=== PATIENT | male | born 1965 | race Caucasian/White ===

== ENCOUNTER → 2019-07-07 09:35 | Outpatient (CLI) | payer OTHER, SELFPAY ==
--- NOTE | 2019-07-07 09:45 | MRI_ITS ---
STUDY: MRI LEFT FOREFOOT WITHOUT CONTRAST REASON FOR EXAM: Male, 53 years old. Pain in the plantar aspect of the second metatarsal bone. TECHNIQUE: Standardized fat and water weighted pulse sequences were obtained in all 3 orthogonal planes. COMPARISON: None. FINDINGS: Small joint effusion of the first metatarsophalangeal joint. Normal tibial and fibular sesamoids, with normal sesamoids-first metatarsal articulations. Small joint effusion of the first interphalangeal joint. Normal proximal and distal phalanges of the great toe. Normal medial and lateral heads of the flexor hallucis brevis tendons. Normal flexor and extensor hallucis longus tendons. Normal second through fifth metatarsophalangeal (MTP) joints. Normal interphalangeal joints of the second through fifth toes. Normal proximal, middle and distal phalanges of the second through fifth toes. Normal first through fourth intermetatarsal spaces. Normal flexor and extensor tendons of the second through fifth toes. Normal visualized metatarsi. Normal intrinsic muscles of the forefoot. There is no demonstrated soft tissue abnormality. MRI/Lower Ext/No Jt/w/o IMPRESSION: Small effusions of the first metatarsophalangeal joint first interphalangeal joint. No second plantar plate tear. Electronically Signed: Felipe Olivas MD at 13:58 EDT Tel , Service support ,
== END ==
PROVIDERS: Family Provider Family Medicine; PCP Family Medicine; Referring Provider Podiatrist; Visit Provider Podiatrist
DX: S99.922A Unspecified injury of left foot, initial encounter (principal); M77.8 Other enthesopathies, not elsewhere classified
CPT/HCPCS: 73718

== ENCOUNTER 2020-09-24 10:37 | Emergency (ER) | payer OTHER, SELFPAY ==
[2020-09-24 10:43] VITALS: BP 174/105; PULSE 76; RESP 16; TEMP 36.6; O2SAT 96; BMI 26.9
--- NOTE | 2020-09-24 11:35 | EKG12_ITS ---
Test Reason : CP Blood Pressure : / mmHG Vent. Rate : 074 BPM Atrial Rate : 074 BPM P-R Int : 174 ms QRS Dur : 094 ms QT Int : 378 ms P-R-T Axes : 050 027 022 degrees QTc Int : 419 ms Normal sinus rhythm Normal ECG Confirmed by ANDREA AGUSTIN, SHARATH ([id number]), news video editor SUKI WALTERS ([id number]) on 09/29/2020 9:52:31 A M Referred By: PETE Confirmed By:SYBIL MENDEZ MD
--- NOTE | 2020-09-24 11:36 | ED.VISSUMM ---
- ER Visit Summary Date of Service: 09/24/20 Chief Complaint: Back and left arm pain History of Present Illness: The patient is a 55 M who presents with back and left arm pain that is been getting worse over the past 4 days. Patient describes the pain is dull. Patient states the pain is over the left upper thoracic area. Patient states the pain is constant. Patient states the pain is worse with palpation and movement. Patient does admit to some tingling down his left arm into his fifth finger. Patient denies any shortness of breath. Patient denies any nausea or vomiting. Patient denies any fevers or chills. Patient does admit to some mild pain in his neck on the left. Physical Examination: Vital signs are stable. Patient is afebrile. Patient is in no acute distress. Heart was regular rate and rhythm. Lungs are clear and equal bilaterally. Abdomen is soft. Bowel sounds are normal. There is no tenderness. Cranial nerves II through XII are intact. Strength is 5/5 bilateral in the upper and lower extremities. Musculoskeletal exam reveals mild tenderness at over the left trapezius area. There is no edema or ecchymosis. There is no bony crepitance or step-off. Test Results: EKG was obtained. On my interpretation, there is a normal sinus rhythm with a rate of 74. There are no acute ST or T wave changes. Portable 1 view chest x-ray was obtained. On my interpretation, lung alberts are clear. There is normal cardiac silhouette. Bony thorax is normal. There is no acute process noted. Radiologist also interpreted the x-ray and agrees. X-rays of the cervical spine were obtained. There are 3 views. On my interpretation, there are degenerative changes noted. There is no spondylolisthesis or spondylolysis. There is no soft tissue swelling. There is no acute fracture. Radiologist also interpreted the x-rays and agrees. CBC and basic metabolic profile were within normal limits. Troponin was normal. Emergency Department Course and Treatment: Since the paresthesias are only over the fourth and fifth digits of the left hand, it is likely from a peripheral neuropathy of either the C7 nerve root or the ulnar nerve. Patient was given a prescription for prednisone. Patient was instructed to follow-up with his primary care physician in 5 to 7 days for reevaluation. Patient understood and was agreeable with the plan. All questions were answered. Disposition: Discharge home Impression: 1. Paresthesias This note was generated with [employer] dictation software. It may contain incorrect words, spelling, and punctuation that were not noted in review of the chart prior to signing ED Disposition - Plan for ED Patient: Disposition: Home or Assisted Living Diagnosis: Paresthesias in left hand Prescriptions: Prednisone [Deltasone] 60 mg PO DAILY #15 tab Transmission Status: Pending to [id number] Referrals: Chandler Aquino MD [Primary Care Provider] - 5-7 Days
--- NOTE | 2020-09-24 12:05 | RAD_ITS ---
STUDY: X-RAY CHEST REASON FOR EXAM: Male, 55 years old. Left arm pain and numbness x3 days -- also reports pain in left shoulder blade TECHNIQUE: Single AP portable view of the chest. COMPARISON: None. FINDINGS: EKG electrodes are seen. The lungs are clear and expanded. There is no demonstrated pleural abnormality. Normal size heart. Normal mediastinum and enmanuel. Normal visualized pulmonary arteries. There is atherosclerotic tortuosity of the aortic arch and descending thoracic aorta. There are degenerative changes of the visualized thoracic spine. Mild dextroscoliosis. Normal visualized ribs, clavicles, and shoulders. There is no demonstrated abnormality of the visualized soft tissue structures of the upper abdomen. RAD/Chest 1 View (Portable) IMPRESSION: No acute abnormality is seen. Electronically Signed: Pawan Mendiola, at 12:21 EST , Service support ,
--- NOTE | 2020-09-24 12:05 | RAD_ITS ---
STUDY: X-RAY - CERVICAL SPINE REASON FOR EXAM: Male, 55 years old. Left arm pain and numbness x3 days -- also reports pain in left shoulder blade TECHNIQUE: 3 view(s) of the cervical spine were obtained. COMPARISON: None FINDINGS: Normal anterior atlantoaxial articulation. Normal odontoid process. There is straightening of the normal cervical lordosis. There is multi-level endplate spondylosis. There is multi-level degenerative disc disease with multilevel disc space narrowing. Normal visualized intervertebral neuroforamina. The soft tissue structures are unremarkable. RAD/Cerv Spine 2 or 3 Views IMPRESSION: Straightening of the normal cervical lordosis. Disc space narrowing and the spondylosis at the C3-C4, C4-C5 and C5-C6 levels. Electronically Signed: Pawan Mendiola, at 12:20 EST , Service support ,
[2020-09-24 12:06] LABS: Absolute Lymphocyte Count 1.93 X10^3/uL (0.83-4.51); Basophil# 0.08 X10^3/uL; Basophil% 1.2 % (0-1); Eosinophil# 0.24 X10^3/uL; Eosinophils% 3.6 % (0-5); Hematocrit 37.9 % (40-54); Hemoglobin 12.9 g/dL (13.0-16.5); Lymphocyte # 1.93 X10^3/ul (4.0); Lymphocyte % 28.7 % (19-41); Mean Corpuscular Hgb 30.6 pg (27.0-32.0); Mean Corpuscular Volume 89.8 fL (80-94); Mean Platelet Vol. 9.3 fl (6.2-12.0); Monocyte# 0.44 X10^3/uL; Monocyte% 6.5 % (0-10); NRBC Flagged by Analyzer 0 % (0-5); Neutrophil # 3.98 X10^3/uL (2.7-7.7); Neutrophil % 59.1 % (47-70); Platelet Count 255 K/mm3 (150-450); RBC Distribution Width CV 12.1 % (11.6-14.6); RBC Distribution Width SD 39.3 fl (35.1-43.9); Red Blood Count 4.22 M/mm3 (4.6-6.2); White Blood Count 6.7 K/mm3 (4.4-11.0)
[2020-09-24 12:20] LABS: Anion Gap 3 (5-15); BUN 20 mg/dL (7-18); BUN/Creat Ratio 17.1 RATIO (10-20); Calcium,Total 8.8 mg/dL (8.5-10.1); Chloride 107 mmol/L (98-107); Creatinine, Serum 1.17 mg/dL (0.70-1.30); EST Glomerular Filtration Rate 68 mL/min (>60); Est Glom Filt Rate - Afr Amer 83 mL/min (>60); Estimated Creatinine Clearance 80.99 ml/min; Glucose 97 mg/dL (74-106); Potassium 4.1 mmol/L (3.5-5.1); Sodium Level 138 mmol/L (136-145)
[2020-09-24 13:56] VITALS: PULSE 66; RESP 16; O2SAT 97
[2020-09-24] MEDS: predniSONE 20 MG Tablet 60 MG PO (13:56)
== END 2020-09-24 14:00 | disposition home or self-care (01) ==
PROVIDERS: Emergency Provider Emergency Medicine; PCP Family Medicine
DX: R20.2 Paresthesia of skin (principal); M54.2 Cervicalgia; M54.9 Dorsalgia, unspecified; I10 Essential (primary) hypertension; K21.9 Gastro-esophageal reflux disease without esophagitis; E11.9 Type 2 diabetes mellitus without complications; N40.0 Benign prostatic hyperplasia without lower urinary tract symptoms; Z79.899 Other long term (current) drug therapy
CPT/HCPCS: 71045; 72040; 80048; 84484; 85025; 93005; 99285; A4216